=== PATIENT | female | born 1990 | race Caucasian/White ===

== ENCOUNTER 2021-02-21 18:16 | Emergency (ER) | payer OTHER ==
[~2021-02-21] VITALS: Ht 170.2 cm; Wt 90.7 kg
[~2021-02-21 18:16] MED LIST: ADVIL PM CAPLE1 EACH PO; ALLEGRA ALLERG180 MG PO; CIPRO500 M1 PO; CIPRO500 MG PO; FLAGYL500 MG PO; IBUPROFEN 600600 M1 PO; MICROGESTIN1 EAC1 PO; PROBIOTIC1 EAC1 PO; PROZAC10 MG PO; ROBAXIN 750 MG750 M1 PO; TRINATE TABLET1 TAB PO; VENTOLIN HFA 1818 GM INH; ZOFRAN ODT4 MG PO
[2021-02-21] MEDS ORDERED: BUSPIRONE HCL15 MG PO (18:40)
[2021-02-21] MEDS ORDERED: DESYREL150 MG PO (18:40)
[2021-02-21] MEDS ORDERED: PROZAC40 MG PO (18:41)
[2021-02-21 19:11] LABS: INFLUENZA A ANTIGEN Negative (Negative); INFLUENZA B ANTIGEN Negative (Negative)
[2021-02-21] MEDS ORDERED: PROAIR HFA8.5 GM INH (19:23)
[2021-02-21 19:45] VITALS: BP 133/79
== END 2021-02-21 19:45 | disposition home or self-care (01) ==
LOC: M.ERS 18:16
PROVIDERS: Physician Assistant
DX: R06.02 Shortness of breath (principal); Z20.822 Contact with and (suspected) exposure to COVID-19; J45.909 Unspecified asthma, uncomplicated; Z79.899 Other long term (current) drug therapy

== ENCOUNTER 2021-03-05 01:42 | Emergency (ER) | payer OTHER ==
[~2021-03-05] VITALS: Ht 170.2 cm; Wt 90.7 kg
[~2021-03-05 01:42] MED LIST changes: +BUSPIRONE HCL15 MG PO; +DESYREL150 MG PO; +PROAIR HFA8.5 GM INH; +PROZAC40 MG PO
[2021-03-05 03:16] LABS: URINE BILIRUBIN NEGATIVE (Negative); URINE BLOOD 3+ (Negative); URINE CLARITY CLEAR; URINE COLOR YELLOW; URINE GLUCOSE-RANDOM NEGATIVE (Negative); URINE KETONES NEGATIVE (Negative); URINE LEUKOCYTES-REFLEX 1+ (Negative); URINE NITRITE-REFLEX NEGATIVE (Negative); URINE PROTEIN NEGATIVE (Negative)
[2021-03-05 03:17] LABS: ABSOLUTE EOSINOPHILS 0.1 thou/uL (0.0-0.7); ABSOLUTE LYMPHOCYTES 1.6 thou/uL (0.8-5.3); ABSOLUTE MONOCYTES 0.6 thou/uL (0.0-1.2); ABSOLUTE NEUTROPHILS 10.5 thou/uL (1.6-8.1); BASOPHILS 0.3 %; EOSINOPHILS 0.9 %; HEMATOCRIT 36.7 % (37.0-47.0); HEMOGLOBIN 12.9 gm/dL (12.0-15.0); LYMPHOCYTES 12.5 %; MCH 30.2 pg (26.0-34.0); MCHC 35.1 g/dL (28.0-37.0); MONOCYTES 4.8 %; MPV 7.3 fl. (7.2-11.1); NUCLEATED RBCS 0 /100WBC; PLATELET COUNT* 251 thou/uL (150-400); POLYS 81.5 %; RBC 4.26 mil/uL (4.20-5.00); RDW-CV 13.6 % (10.5-14.5); WBC 12.8 thou/uL (4.0-11.0)
[2021-03-05 03:22] LABS: CALCIUM 8.7 mg/dL (8.5-10.1)
[2021-03-05 03:27] LABS: TOTAL BILIRUBIN 0.3 mg/dL (<0.1-1.0); TOTAL PROTEIN 7.2 g/dL (6.4-8.2)
[2021-03-05 03:28] LABS: POTASSIUM 2.9 mmol/L (3.5-5.1)
[2021-03-05 04:42] LABS: CASTS None Seen /LPF (None Seen); SQUAMOUS >10 Many /LPF (0-3)
[2021-03-05 04:43] LABS: URINE WBC-REFLEX 6-15 Few /HPF (0-5)
[2021-03-05 04:44] LABS: CRYSTALS None Seen /LPF (None Seen); URINE RBC >20 Many /HPF (0-2)
[2021-03-05] MEDS ORDERED: LEVOFLOXACIN750 MG PO (04:44)
[2021-03-05] MEDS ORDERED: HYDROCODON-ACE1 EAC7 PO (04:44)
[2021-03-05] MEDS ORDERED: ZOFRAN ODT4 MG PO (04:44)
[2021-03-05 05:19] VITALS: BP 135/80
== END 2021-03-05 05:20 | disposition home or self-care (01) ==
LOC: M.ERS 01:42
PROVIDERS: Personal Emergency Response Attendant
DX: N12 Tubulo-interstitial nephritis, not specified as acute or chronic (principal); E87.6 Hypokalemia; F32.9 Major depressive disorder, single episode, unspecified; J45.909 Unspecified asthma, uncomplicated; F41.9 Anxiety disorder, unspecified; Z79.899 Other long term (current) drug therapy; Z91.018 Allergy to other foods